=== PATIENT | male | born 1985 | race Caucasian/White ===

== ENCOUNTER 2019-10-28 01:00 | Emergency (ER) | payer OTHER ==
[~2019-10-28] VITALS: Ht 180.3 cm; Wt 108.9 kg
== END 2019-10-28 01:53 | disposition home or self-care (01) ==
LOC: ED 01:00
DX: S05.02XA Injury of conjunctiva and corneal abrasion without foreign body, left eye, initial encounter (principal); W45.8XXA Other foreign body or object entering through skin, initial encounter
CPT/HCPCS: 99283